=== PATIENT | female | born 1980 | race African-American/Black ===

== ENCOUNTER 2019-04-25 19:57 | Emergency (ER) | payer OTHER ==
[2019-04-25] MEDS ORDERED: methylPREDNISolone Acetate 40 mg/ml Vial ONE (20:16)
[2019-04-25] MEDS ORDERED: diphenhydrAMINE 50 MG/ML VIAL ONE (20:16)
== END 2019-04-25 21:10 | disposition home or self-care (01) ==
LOC: NAV ERS 19:57
DX: T78.40XA Allergy, unspecified, initial encounter (principal); K13.0 Diseases of lips; I10 Essential (primary) hypertension; J45.909 Unspecified asthma, uncomplicated; F41.9 Anxiety disorder, unspecified; Z79.899 Other long term (current) drug therapy
CPT/HCPCS: 96372; 99283; J1030; J1200